=== PATIENT | female | born 1960 | race African-American/Black ===

== ENCOUNTER 2019-09-02 19:03 | Emergency (ER) | payer OTHER ==
[~2019-09-02] VITALS: Ht 152.4 cm; Wt 87.5 kg
[2019-09-02 21:19] VITALS: BP 158/95
== END 2019-09-02 21:20 | disposition home or self-care (01) ==
LOC: ER 19:03
DX: J40 Bronchitis, not specified as acute or chronic (principal); J30.9 Allergic rhinitis, unspecified; J32.9 Chronic sinusitis, unspecified; I10 Essential (primary) hypertension; F17.210 Nicotine dependence, cigarettes, uncomplicated; Z88.5 Allergy status to narcotic agent; Z90.710 Acquired absence of both cervix and uterus
CPT/HCPCS: 99282

== ENCOUNTER 2019-09-15 11:31 | Emergency (ER) | payer OTHER ==
[~2019-09-15] VITALS: Ht 152.4 cm; Wt 86.0 kg
[2019-09-15 12:17] VITALS: BP 132/89
== END 2019-09-15 14:00 | disposition home or self-care (01) ==
LOC: ER 11:31
DX: J06.9 Acute upper respiratory infection, unspecified (principal); R05 Cough; I10 Essential (primary) hypertension; Z88.5 Allergy status to narcotic agent; Z90.710 Acquired absence of both cervix and uterus
CPT/HCPCS: 71045; 99283

== ENCOUNTER 2022-05-02 06:44 | Emergency (ER) | payer MEDICAID ==
[~2022-05-02] VITALS: Ht 152.4 cm; Wt 65.0 kg
[2022-05-02] MEDS ORDERED: HYDROCODONE/ACETAMINOPHEN 5/325MG TABLET PO STA (07:53)
[2022-05-02 07:57] VITALS: BP 150/100
[2022-05-02] MEDS ORDERED: T3 PO ×2 (09:36)
[2022-05-02] MEDS ORDERED: HYDR-4001 MT (09:40)
== END 2022-05-02 09:45 | disposition home or self-care (01) ==
LOC: ER 06:44
DX: R07.89 Other chest pain (principal); R10.11 Right upper quadrant pain; I10 Essential (primary) hypertension; K76.9 Liver disease, unspecified; Z90.710 Acquired absence of both cervix and uterus; Z88.5 Allergy status to narcotic agent
CPT/HCPCS: 71046; 99283

== ENCOUNTER 2023-04-06 06:59 | Emergency (ER) | payer MEDICAID, OTHER ==
[~2023-04-06] VITALS: Ht 154.9 cm; Wt 82.0 kg
[~2023-04-06 06:59] MED LIST: HYDR-4001 MT
[2023-04-06] MEDS ORDERED: D-ME473S50 PO (09:01)
[2023-04-06] MEDS ORDERED: FLUT9.9S BOTHNSTRLS (09:01)
[2023-04-06] MEDS ORDERED: AMOX1TAB16 MT (09:01)
[2023-04-06 09:28] VITALS: BP 145/87
== END 2023-04-06 09:29 | disposition home or self-care (01) ==
LOC: ER 06:59
DX: J32.9 Chronic sinusitis, unspecified (principal); I10 Essential (primary) hypertension; Z88.5 Allergy status to narcotic agent
CPT/HCPCS: 99281; 99283